=== PATIENT | female | born 1995 | race Hispanic/Latino ===

== ENCOUNTER 2023-09-01 09:28 | Outpatient (CLI) | payer OTHER | END 2023-09-01 09:29 | disposition home or self-care (01) | LOC: ULT 09:28 → EDBD 09:28 → ULT 09:29 | PROVIDERS: ATTEND Family Medicine | DX: K74.60 Unspecified cirrhosis of liver (principal); D69.6 Thrombocytopenia, unspecified | CPT/HCPCS: 76705 ==